=== PATIENT | female | born 1960 | race Caucasian/White ===

== ENCOUNTER 2022-04-23 10:48 | Emergency (ER) | payer OTHER, SELFPAY ==
--- NOTE | 2022-04-23 08:46 | ECG_ITS ---
Test Reason : CHEST PAIN Blood Pressure : / mmHG Vent. Rate : 080 BPM Atrial Rate : 080 BPM P-R Int : 110 ms QRS Dur : 076 ms QT Int : 370 ms P-R-T Axes : 060 065 039 degrees QTc Int : 426 ms Sinus rhythm with short [place] Otherwise normal ECG No significant changes seen Referred By: Lita Alexander Electronically Signed By:BERENICE SAENZ MD
[2022-04-23 10:52] VITALS: BP 144/84; PULSE 92; RESP 20; TEMP 36.5; O2SAT 99; BMI 24.5
--- NOTE | 2022-04-23 11:54 | ED_ITS ---
HPI - Fall General Chief Complaint: Fall Source: patient
--- NOTE | 2022-04-23 11:54 | ED.FALL ---
HPI - Fall General Chief Complaint: Fall Stated Complaint: R side pain/SOB Time Seen by Provider: 04/23/22 11:34 Source: patient Mode of arrival: ambulatory Limitations: language barrier ( Brazilian-speaking medical records secretary utilized) History of Present Illness HPI Narrative: patient presents emergency department for evaluation of right-sided chest pain described as rib pain. She states that she fell landing into the frame of her bed approximately 2 weeks ago. has not had any additional falls or injuries since this initial event. She did not have pain until 3 or 4 days after the fall. She said she suddenly developed severe pain to the right anterior lower chest that radiates around to the side and into the back, stating that it seems to follow along the area of her ribs. The pain is constant, but seems to have a varying intensity /severity. Describes pain to be exacerbated by movement, cough, deep inspiration. However even while at rest she appears to have significant waves of increased pain neck causes her to scream and become tearful. She denies any midline back pain, shoulder pain, or substernal chest pain. Has associated intermittent nausea with severe pain, but denies vomiting, or abdominal pain. denies fevers or chills. Denies recent leg pain, swelling, redness. Denies past history of DVT / PE, denies personal history of cancer. Related Data Previous Rx's Medication Instructions Recorded tramadol 50 mg tablet 50 mg PO Q8H PRN pain #10 tabs 04/23/22 Allergies Allergy/AdvReac Type Severity Reaction Status Date / Time No Known Allergies Allergy Unverified 04/01/20 18:51 [No Known Allergies*] Review of Systems Review of Systems: Constitutional : No Weight loss, No Fever, No Chills ENT/Mouth :? No sore throat, No Rhinorrhea Eyes: No Eye Pain, No Swelling Cardiovascular : pos Chest Pain, pos SOB, no Dyspnea on Exertion, No Orthopnea, No Edema, No Palpitations Respiratory : No Cough, No Sputum Gastrointestinal : pos Nausea, No Vomiting, No Diarrhea, No abdominal Pain, No Hematochezia, No Melena Genitourinary : No Dysuria, No Urinary Frequency Musculoskeletal : No joint pain, No Myalgias, No Joint Swelling Skin : No Skin Lesions, No rash Neuro : No Weakness, No Numbness, No Dizziness, No Headache Psych : No Anxiety/Panic, No Depression Heme/Lymph: No Bruising, No Lymphadenopathy Endocrine : No Polyuria, No Polydipsia Yes all other systems are reviewed and are negative [facility] Past Medical History Attestation statement: The following information was validated with the patient. Source: old records reviewed Social History Social History Advance Directives: No Advance Directives Information Provided: Yes Physical Exam Vital Signs: Vital Signs: Last Vital Signs Temp 96.7 F L 04/23/22 13:44 Pulse 80 04/23/22 13:44 Resp 16 04/23/22 13:44 BP 129/66 04/23/22 13:44 Pulse Ox 98 04/23/22 13:44 O2 Del Method 04/23/22 13:44 BMI result Body Mass Index 24.5 Appearance: Alert.?Oriented to person, place and time. No acute distress.?Normal affect. Eyes: Pupils equal, round and reactive to light.? ENT: Pharynx normal.?? Neck: Normal inspection.? Neck supple.?? CVS: Heart sounds normal. Normal heart rate and rhythm.? Pulses normal.?? Respiratory: No respiratory distress.? Lung sounds clear to auscultation bilaterally, No diminished throughout, due to decreased inspiratory effort. No crepitus upon palpation. No bruising noted to the right lateral chest wall. Significant tenderness even with light palpation over the right lower/lateral chest wall. No obvious palpable deformity. Abdomen: Soft With right upper quadrant tenderness upon palpation, negative Becker sign.. Normoactive bowel sounds. Skin: Skin warm and dry.? Normal skin color.? Extremities: No lower extremity edema.? No calf ttp? Neuro: Moves all extremities spontaneously. Sensation intact bilaterally. CN II-XII intact. No focal neuro deficits. Ambulates with normal steady gait. Course Course Course Narrative: Patient is a 61-year-old female with a past medical history of Fibromyalgia, and osteoporosis. She presents to the emergency department for evaluation of right-sided chest pain reported concern for fracture. XR obtained from triage reveals no indication of acute cardiopulmonary process and no rib fractures. Upon examination she appears significantly uncomfortable, has significant tenderness even with light palpation over the right anterior lateral chest wall. No obvious palpable deformity, does not appear consistent with well chest at this time. Not consistent with pneumothorax. However, given the extent of her pain, and age Will obtain CBC to evaluate for leukocytosis/ anemia, CMP and lipase to evaluate for abnormal electrolytes /abnormal renal function/ abnormal hepatic/biliary function, EKG and troponin to evaluate for ischemia/ACS. will obtain ultrasound of the right upper quadrant to exclude cholecystitis and cholelithiasis given tenderness upon palpation, however Becker sign is negative. Patient to receive ondansetron 4 mg IV, morphine 4 mg IV, ketorolac 30 mg IV. Disposition pending results. Reevaluation(s) Reevaluation #1: CBC is overall unremarkable. Troponin < 3.5, EKG reveals sinus rhythm with short CO interval; 110, nonspecific ST abnormality, no prior EKG available for comparison. D-dimer < 150, unlikely pulmonary embolism. Ultrasound reveals an unremarkable gallbladder thickening pericholecystic fluid stones there is an echogenic 1 cm lesion in the right lobe of the liver likely a hemangioma. pain is significantly improved after being medicated. Continues to have tenderness upon palpation over the lateral lower ribs. Suspect contusion of the ribs at this time. Discussed plan of care for discharge home, tramadol as needed for pain, rest, ice / heat, bracing of the rib/chest with coughing sneezing and movement. Reviewed worrisome signs and symptoms to present to the emergency department for. Outpatient follow-up with primary care provider within 1 week. Patient verbalized understanding. Was discharged home in stable condition. MDM - Fall Medical Records Attestation: I reviewed the patient's medical records. Lab Data Attestation: I reviewed the patient's lab results. Result diagrams: 04/23/22 13:04 04/23/22 14:06 Labs: Lab Results 04/23/22 04/23/22 04/23/22 Range/Units 13:04 13:04 13:04 WBC 7.2 (4.8-10.8) X10*3/uL RBC 4.29 (4.20-5.50) X10*6/uL Hgb 15.1 (12.0-16.0) g/dl Hct 43.3 (37.0-47.0) % MCV 100.9 H (80.0-98.0) fL MCH 35.2 H (27.0-33.0) pg MCHC 34.9 (31.0-35.0) g/dl RDW 13.2 (11.0-16.0) % Plt Count 215 (160-400) X10*3/uL MPV 10.1 (9.4-12.3) fL Immature Gran % (Auto) 0.3 (0.0-0.4) % Neut % (Auto) 62.7 (45-73) % Lymph % (Auto) 29.1 (20-40) % Travis % (Auto) 7.2 (2-11) % Eos % (Auto) 0.4 (0-4) % Baso % (Auto) 0.3 (0-2) % Lymph # (Auto) 2.1 (1.2-4.9) X10*3/uL Travis # (Auto) 0.5 (0.1-1.2) X10*3/uL Eos # (Auto) 0.0 (0.0-0.4) X10*3/uL Baso # (Auto) 0.0 (0.0-0.2) X10*3/uL Abs Immat Gran (auto) 0.02 (0.00-0.03) X10*3/uL Absolute Neuts (auto) 4.5 (2.0-8.3) x10*3/uL Absolute Nucleated RBC 0.000 (0.0-0.012) X10*3/uL Nucleated RBC % (auto) 0.0 (0.0-0.2) /100WBC D-Dimer High Sensitivty < 150 NG/ML Sodium (135-145) mmol/L Potassium (3.3-5.1) mmol/L Chloride (96-108) mmol/L Carbon Dioxide (22-29) mmol/L Anion Gap (12-20) BUN (9-16) mg/dL Creatinine (0.5-1.4) mg/dL Estim Creat Clear Calc Estimated GFR Random Glucose (60-115) mg/dL Calcium (8.4-10.2) mg/dL Total Bilirubin (0.0-1.0) mg/dL AST (5-31) U/L ALT (0-31) U/L Alkaline Phosphatase (39-117) U/L Troponin I High Sens < 3.5 (<3.5-17.0) ng/L Total Protein (6.5-8.0) g/dL Albumin (3.5-5.0) g/dL Lipase (8-78) U/L COVID-19 ([facility]) (Negative) COVID-19 Clin Com 04/23/22 04/23/22 Range/Units 13:04 14:06 WBC (4.8-10.8) X10*3/uL RBC (4.20-5.50) X10*6/uL Hgb (12.0-16.0) g/dl Hct (37.0-47.0) % MCV (80.0-98.0) fL MCH (27.0-33.0) pg MCHC (31.0-35.0) g/dl RDW (11.0-16.0) % Plt Count (160-400) X10*3/uL MPV (9.4-12.3) fL Immature Gran % (Auto) (0.0-0.4) % Neut % (Auto) (45-73) % Lymph % (Auto) (20-40) % Travis % (Auto) (2-11) % Eos % (Auto) (0-4) % Baso % (Auto) (0-2) % Lymph # (Auto) (1.2-4.9) X10*3/uL Travis # (Auto) (0.1-1.2) X10*3/uL Eos # (Auto) (0.0-0.4) X10*3/uL Baso # (Auto) (0.0-0.2) X10*3/uL Abs Immat Gran (auto) (0.00-0.03) X10*3/uL Absolute Neuts (auto) (2.0-8.3) x10*3/uL Absolute Nucleated RBC (0.0-0.012) X10*3/uL Nucleated RBC % (auto) (0.0-0.2) /100WBC D-Dimer High Sensitivty NG/ML Sodium 139 (135-145) mmol/L Potassium 4.3 (3.3-5.1) mmol/L Chloride 104 (96-108) mmol/L Carbon Dioxide 22 (22-29) mmol/L Anion Gap 17 (12-20) BUN 16 (9-16) mg/dL Creatinine 0.80 (0.5-1.4) mg/dL Estim Creat Clear Calc 64.2 Estimated GFR > 60 Random Glucose 85 (60-115) mg/dL Calcium 9.4 (8.4-10.2) mg/dL Total Bilirubin 0.6 (0.0-1.0) mg/dL AST 43 H (5-31) U/L ALT 49 H (0-31) U/L Alkaline Phosphatase 114 (39-117) U/L Troponin I High Sens (<3.5-17.0) ng/L Total Protein 6.9 (6.5-8.0) g/dL Albumin 4.0 (3.5-5.0) g/dL Lipase 36 (8-78) U/L COVID-19 ([facility]) Negative (Negative) COVID-19 Clin Com See Note Imaging Data Chest x-ray: Radiologist's impression: XR/XR ribs RT min 3V w CXR1V IMPRESSION: No right rib fracture is noted at this time. No evidence of acute pulmonary process. No evidence of pleural effusions or pneumothorax. US - abdomen: Radiologist's impression: US/US abdomen limited IMPRESSION: *Technologist reported tenderness pressing on the gallbladder, there is however no gallbladder stones, no gallbladder wall thickening or pericholecystic fluid collection or other signs to suggest cholecystitis. ? *Echogenic 1 cm lesion in the right lobe of the liver, most likely meningioma. If patient is high-risk, May consider correlation with follow-up contrast enhanced dynamic study CT scan or MRI for confirmation. ECG Data Attestation: I personally reviewed and interpreted this ECG as follows: ECG interpretation date: 04/23/22 Prior ECG tracings: not available for review Interpretation: Rate: 800 Rhythm:? normal sinus rhythm [place]:? normal Normal P waves.? short VARUN; 110 Normal QRS complex.?? ST T wave :?? no ST elevation, Nonspecific ST abnormality qTC: 426 The study has been interpreted contemporaneously by me. Discharge Plan Discharge Clinical Impression: Contusion of rib on right side Patient Disposition: Home, Self-Care Instructions: Rib Contusion (ED) Additional Instructions: You have been given a new prescription for tramadol to use as needed for pain. Be sure to rest, apply ice/heat to the area, follow-up with your primary care provider within 1 week. You may return to the emergency department with any worsening symptoms or concerns. As discussed, the x-ray did not reveal any fracture to the ribs. Prescriptions: New tramadol 50 mg tablet 50 mg PO Q8H PRN (Reason: pain) Qty: 10 0RF Print Language: Brazilian
--- NOTE | 2022-04-23 12:27 | ECG_ITS ---
Test Reason : CHEST PAIN Blood Pressure : / mmHG Vent. Rate : 080 BPM Atrial Rate : 080 BPM P-R Int : 110 ms QRS Dur : 076 ms QT Int : 370 ms P-R-T Axes : 060 065 039 degrees QTc Int : 426 ms Sinus rhythm with short [place] Borderline ECG When compared with ECG of 25-SEP-2014 10:52, No significant changes seen Referred By: Lita Alexander Electronically Signed By:BERENICE SAENZ MD
[2022-04-23 13:10] LABS: MANUAL DIFF FLAG NO
[2022-04-23] MEDS: ondansetron HCL 4 MG/2 ML VIAL IVPUSH (13:14)
[2022-04-23 13:15] LABS: Basophils Percent Auto 0.3 % (0-2); Eosinophils Percent Auto 0.4 % (0-4); Hematocrit 43.3 % (37.0-47.0); Hemoglobin 15.1 g/dl (12.0-16.0); Imm Gran Abs Auto 0.02 X10*3/uL (0.00-0.03); Imm Gran Pct Auto 0.3 % (0.0-0.4); Lymphocytes Absolute Auto 2.1 X10*3/uL (1.2-4.9); Lymphocytes Percent Auto 29.1 % (20-40); Mean Corpuscular HGB Conc 34.9 g/dl (31.0-35.0); Mean Corpuscular Hemoglobin 35.2 pg (27.0-33.0); Mean Corpuscular Volume 100.9 fL (80.0-98.0); Mean Platelet Volume 10.1 fL (9.4-12.3); Monocytes Absolute Auto 0.5 X10*3/uL (0.1-1.2); Monocytes Percent Auto 7.2 % (2-11); Neutrophils Absolute Auto 4.5 x10*3/uL (2.0-8.3); Neutrophils Percent Auto 62.7 % (45-73); Platelet Count 215 X10*3/uL (160-400); Red Blood Count 4.29 X10*6/uL (4.20-5.50); Red Cell Distribution Width 13.2 % (11.0-16.0); White Blood Count 7.2 X10*3/uL (4.8-10.8)
[2022-04-23] MEDS: Ketorolac Tromethamine 30 MG/ML VIAL IVPUSH (13:18)
[2022-04-23 13:19] VITALS: RESP 16
[2022-04-23] MEDS: Morphine Sulfate 4 MG/ML CARTRIDGE IVPUSH (13:19)
[2022-04-23 13:31] LABS: COVID-19 Test Negative (Negative); D Dimer High Sensitivity < 150 NG/ML
[2022-04-23 13:32] LABS: Troponin-I High Sensitivity < 3.5 ng/L (<3.5-17.0)
[2022-04-23 13:44] VITALS: BP 129/66; PULSE 80; RESP 16; TEMP 35.9; O2SAT 98
[2022-04-23 14:29] LABS: Alanine Aminotransferase 49 U/L (0-31); Alkaline Phosphatase 114 U/L (39-117); Anion Gap 17 (12-20); Aspartate Amino Transferase 43 U/L (5-31); Bilirubin Total 0.6 mg/dL (0.0-1.0); Blood Urea Nitrogen 16 mg/dL (9-16); Calcium 9.4 mg/dL (8.4-10.2); Carbon Dioxide 22 mmol/L (22-29); Chloride 104 mmol/L (96-108); Creatinine Clr Calc Pharmacy 64.2; Estimated Glomerular Filt Rate > 60; Glucose Random 85 mg/dL (60-115); Lipase 36 U/L (8-78); Potassium 4.3 mmol/L (3.3-5.1); Sodium 139 mmol/L (135-145); Total Protein 6.9 g/dL (6.5-8.0)
[2022-04-23 15:44] VITALS: BP 139/73; PULSE 91; RESP 16; TEMP 36.8; O2SAT 97
== END 2022-04-23 15:46 | disposition home or self-care (01) ==
PROVIDERS: Nurse Practitioner Family; Emergency Provider Emergency Medicine
DX: R10.11 Right upper quadrant pain (principal); R06.02 Shortness of breath; R07.81 Pleurodynia; Z20.822 Contact with and (suspected) exposure to COVID-19; Z79.899 Other long term (current) drug therapy
CPT/HCPCS: 71101; 76705; 80053; 83690; 84484; 85025; 85379; 87635; 93005; 96374; 96375; 99284; J1885; J2270; J2405